=== PATIENT | male | born 1970 | race Caucasian/White ===

== ENCOUNTER 2018-01-07 09:16 | Inpatient (IN) | payer BC ==
[~2018-01-07] VITALS: Ht 167.6 cm; Wt 86.1 kg
[2018-01-07 09:51] LABS: HEMATOCRIT 44.9 % (38.0-50.0); MCH 30.1 PG (29.0-34.0); MCHC 35.6 G/DL (30.0-36.0); MCV 84.4 FL (86-99); PLATELET COUNT 245 K/uL (156-360); RBC DIS.WIDTH-SD 40.1 % (39-53); RED BLOOD COUNT 5.32 M/uL (4.00-5.50); WHITE BLOOD COUNT 10.4 K/uL (4.1-10.2)
[2018-01-07 10:12] LABS: CHLORIDE 100 mEq/L (99-109); POTASSIUM 4.1 mEq/L (3.7-5.4); SODIUM 139 mEq/L (136-147)
[2018-01-07 10:14] LABS: GLUCOSE 130 mg/dL (70-99)
[2018-01-07 10:17] LABS: GFR ESTIMATE (CALCULATED) 23 mL/min/ (58.99-99999)
[2018-01-07 10:27] LABS: CREATINE KINASE 202 IU/L (1-294); TOTAL CK 202 IU/L (1-294)
[2018-01-07 10:33] LABS: CK-MB 1.8 ng/mL (0.0-4.9); CKMB RELATIVE INDEX 0.9 (0.0-3.9)
[2018-01-07 10:34] LABS: TROP-I INTERPRETATION NEGATIVE; TROPONIN-I 0.02 ng/mL (0.0-0.30)
[2018-01-07 10:36] LABS: CREATININE 3.1 mg/dL (0.6-1.3); UREA NITROGEN (BUN) 54 mg/dL (9-23)
[2018-01-07] MEDS ORDERED: ALEVE220 MG PO (11:32)
[2018-01-07] MEDS ORDERED: PRINIVIL20 MG PO (11:32)
[2018-01-07 12:20] LABS: APPEARANCE SL.HAZY ((CLEAR)); BILIRUBIN NEGATIVE; BLOOD MODERATE; COLOR YELLOW ((YELLOW)); GLUCOSE (STRIP) NEGATIVE; KETONES NEGATIVE; LEUKOCYTES TRACE; NITRITE NEGATIVE; PROTEIN (STRIP) 100; SPECIFIC GRAVITY 1.013 (1.000-1.030); UROBILINOGEN 0.2 MG/DL (0.2-1.0)
[2018-01-07 13:18] LABS: EPITHELIAL CELLS RARE /HPF; MUCUS NONE SEEN /LPF
[2018-01-07 13:20] LABS: BACTERIA 1+ /HPF; RED BLOOD CELLS 15-20 /HPF (0-5); UCUL ADDED? YES
[2018-01-07 13:48] VITALS: BP 136/78
[2018-01-07 15:30] VITALS: BP 108/51
[2018-01-07 23:44] VITALS: BP 130/64
[2018-01-08 06:49] LABS: HEMATOCRIT 39.3 % (38.0-50.0); MCHC 33.3 G/DL (30.0-36.0); MCV 86.9 FL (86-99); PLATELET COUNT 188 K/uL (156-360); RBC DIS.WIDTH-CV 13.1 % (11.8-14.6); RBC DIS.WIDTH-SD 41.5 % (39-53); RED BLOOD COUNT 4.52 M/uL (4.00-5.50); WHITE BLOOD COUNT 12.7 K/uL (4.1-10.2)
[2018-01-08 06:51] LABS: HEMOGLOBIN 13.1 G/DL (12.5-16.6)
[2018-01-08 06:57] LABS: CHLORIDE 112 MEQ/L (99-109); GLUCOSE 108 mg/dL (70-99); POTASSIUM 4.6 MEQ/L (3.7-5.4); SODIUM 142 MEQ/L (136-147)
[2018-01-08 07:03] LABS: CREATININE 1.1 MG/DL (0.6-1.3); GFR ESTIMATE (CALCULATED) > 59 mL/min/ (58.99-99999); UREA NITROGEN (BUN) 25 mg/dL (9-23)
[2018-01-08 07:19] VITALS: BP 136/80
[2018-01-08 11:23] VITALS: BP 100/68
== END 2018-01-08 11:25 | disposition home or self-care (01) | DRG 684 ==
LOC: EME 09:16 → EDOF 11:10 → ENRESERV 11:31 → 5EAST 13:35
PROVIDERS: Hospitalist
DX: N17.9 Acute kidney failure, unspecified (principal); I95.9 Hypotension, unspecified; I10 Essential (primary) hypertension; E86.0 Dehydration; E11.9 Type 2 diabetes mellitus without complications; F17.200 Nicotine dependence, unspecified, uncomplicated
CPT/HCPCS: 76770; 76775; 80048; 81003; 82550; 82553; 82570; 84133; 84300; 84484; 85027; 87086; 99281; 99285; J1644; J7030; J7120